=== PATIENT | female | born 1965 | race Hispanic/Latino ===

== ENCOUNTER → 2017-10-22 | Outpatient (CLI) | payer BC ==
[~2017-10-22] MED LIST: CELEBREX100 MG PO; CHLORZOXAZONE500 MG PO; CRESTOR20 MG PO; CYCLOBENZAPRINE10 MG PO; CYMBALTA30 MG PO; DIAZEPAM2 MG PO; FENOFIBRATE145 MG PO; HYDROCODON-ACE1 EA11 PO; LINZESS PO; LYRICA50 MG PO; MEDROL4 MG/DOSE- PO; NORTRIPTYLINE H10 MG PO; OMEPRAZOLE40 MG PO; PANTOPRAZOLE SO40 MG PO; VICOPROFEN 2001 EACH PO
--- NOTE | 2017-10-22 16:05 | Diagnostic Imaging Report ---
EXAM: DXA BONE DENSITY INDICATIONS: DISORDER OF BONE COMPARISON: 12/08/2015 and 11/11/2013 FINDINGS: Proximal left femur bone mineral density (BMD) (g/cm2):0.78 Femur T-score (standard deviation relative to young adult mean BMD): -0.8 Femur Z-score (standard deviation relative to age-matched control group):0 Lumbar bone mineral density (BMD) (g/cm2):1 Lumbar T-score (standard deviation relative to young adult mean BMD): -0.4 Lumbar Z-score (standard deviation relative to age-matched control group):0.4 Change since prior exam (%): Femur:-5.6% Spine:-7.7% Change since oldest prior exam (%): Femur:-5.5% Spine:-3.9% CONCLUSION: Bone mineral density in the left femur is classified as normal. Fracture risk is not increased. Decreased bone mineral density from 12/08/2015: -5.6% in the left hip and -7.7% in the lumbar spine. World Health Organization Classification: *The Z-score is provided for informational purposes. The T-score is preferable for clinical decisions. When comparing exams, a change of >4% is considered statistically significant. SUGGESTED RECOMMENDATIONS: Normal \T\ Osteopenia:Consideration should be given to use of calcium supplementation, daily multiple vitamins and adequate exercise, as preventive measures against osteoporosis, if clinically indicated. Osteoporosis \T\ Severe Osteoporosis:In addition to the above, consideration should be given to medical therapy against osteoporosis, if clinically indicated. Dictated by: Keagan Tomas M.D. on 10/22/2017 at 16:05 Electronically approved by: Keagan Tomas M.D. on 10/22/2017 at 16:05
== END ==
LOC: MAMMO 14:52
PROVIDERS: ATTEND Internal Medicine
DX: Z12.31 Encounter for screening mammogram for malignant neoplasm of breast (principal); M89.9 Disorder of bone, unspecified
CPT/HCPCS: 77080

== ENCOUNTER → 2017-11-21 | Outpatient (CLI) | payer BC ==
--- NOTE | 2017-11-21 18:11 | Diagnostic Imaging Report ---
#[id number] - USBRELIMRT ULTRASOUND OF THE RIGHT BREAST : 11/21/2017 Comparison is made to exams dated: 11/21/2017 mammogram and 10/22/2017 mammogram - [facility]. Color flow and real-time ultrasound were performed on the right breast with scanning in the outer aspect from 12-6 o'clock. -At 9 o'clock 7 cm from the nipple there is a hypoechoic/cystic lesion measuring 7 x 3 x 6 mm. This could represent a bilobe cyst or lymph node. -At 7-8 o'clock 4 cm from the nipple there is a hyoechoic lesion with slightly lobular contour measuring 1.1 x 0.5 x 0.7 cm. This may represent a fibroadenoma. IMPRESSION: PROBABLY BENIGN - FOLLOW-UP RECOMMENDED Two lesions as described above are likely benign. An interim follow up ultrasound to access stability is recommended in 6 months. The patient was notified of the need for short term followup. Matthew Martínez Jr., D.O. cw/:11/21/2017 13:10:37 Truck Hopper: TROY MITTAL, [facility] letter sent: Followup Recommended Ultrasound BI-RADS: 3 Probably benign
--- NOTE | 2017-11-21 18:11 | Diagnostic Imaging Report ---
#[id number] - [id number] #UNILATERAL RIGHT DIGITAL DIAGNOSTIC MAMMOGRAM WITH SPOT COMPRESSION: 11/21/2017 Comparison is made to exams dated: 10/22/2017 mammogram and 12/08/2015 mammogram - [facility]. Current study contains 3 films. The tissue of the right breast is heterogeneously dense. This may lower the sensitivity of mammography. There is a 1.1 cm oval mass in the right breast at 7 o'clock anterior depth. Another density more lateral appears to represent a lymph node. No other significant masses or calcifications are seen in the breast. IMPRESSION: INCOMPLETE: NEEDS ADDITIONAL IMAGING EVALUATION The 1.1 cm oval mass in the right breast is indeterminate. An ultrasound is recommended and will be performed today. Matthew Martínez Jr., D.O. cw/:11/21/2017 12:47:06 Mold Changer: Yanelis MITTAL(Alycia)(Ruben), [facility] letter sent: Additional Imaging Needed Mammogram BI-RADS: 0 Indeterminate
== END ==
LOC: MAMMO 10:27
PROVIDERS: ATTEND Internal Medicine
DX: N63.10 Unspecified lump in the right breast, unspecified quadrant (principal)

== ENCOUNTER → 2018-01-01 | Day surgery (SDC) | payer BC ==
[~2018-01-01] MED LIST changes: +ATORVASTATIN CA40 MG PO; +CEFAZOLIN SOD 1 GM VIAL ONE; +DEXAMETHASONE SOD PHOS INJ 4 MG/ML VIAL ONE; +FENTANYL CITRATE/PF 100MCG/2 ML INJ ONE; +LIDOCAINE HCL 2% LOCAL INJ 5 ML SDV VIAL INJ ONE; +MIDAZOLAM HCL 2 MG/2 ML VIAL ONE; +ONDANSETRON HCL INJ 2 MG/ML VIAL ONE; +PROPOFOL IV EMULSION 10 MG/ML 20 ML VIAL ONE; +SEVOFLURANE INHAL SOLN 250 ML PEN BTL ONE
--- OUTSIDE RECORDS SUMMARY | 2018-01-01 06:58 | XMS REPORT ---
[facility] Address Unknown Phone Unavailable Care Team Providers Care Director Of Collections And Archives Name Role Phone FEDERICO AMIN Unavailable Unavailable JUANIS KRUEGER Unavailable Unavailable Problems This patient has no known problems. Allergies, Adverse Reactions, Alerts This patient has no known allergies or adverse reactions. Medications This patient has no known medications. Results Test Description Test Time Test Comments Text Results Atomic Results Result Comments US BREAST LIMITED RIGHT [place] [address] Patient Name: ROSMERY ALSTON MR #: [id number] : 1965 Age/Sex: 52/F Req #: [id number] [facility] Physician: Ordered by: FEDERICO AMIN MD Report #: [id number] Location: MAMMO Room/Bed: Procedure: [id number] US/US BREAST LIMITED RIGHT Exam Date: Exam Time: REPORT STATUS: Signed #[id number] - USBRELIMRT ULTRASOUND OF THE RIGHT BREAST : 11/21/2017 Comparison is made to exams dated: 11/21/2017 mammogram and 10/22/2017 mammogram - [facility]. Color flow and real-time ultrasound were performed on the right breast with scanning in the outer aspect from 12-6 o' clock. -At 9 o'clock 7 cm from the nipple there is a hypoechoic/cystic lesion measuring 7 x 3 x 6 mm. This could represent a bilobe cyst or lymph node. -At 7-8 o'clock 4 cm from the nipple there is a hyoechoic lesion with slightly lobular contour measuring 1.1 x 0.5 x 0.7 cm. This may represent a fibroadenoma. IMPRESSION: PROBABLY BENIGN - FOLLOW-UP RECOMMENDED Two lesions as described above are likely benign. An interim follow up ultrasound to access stability is recommended in 6 months. The patient was notified of the need for short term followup. Patria Martínez Jr., D.O. cw/:11/21/2017 13:10:37 Java Security Engineer: TROY MITTAL, [facility] letter sent: Followup Recommended Ultrasound BI-RADS: 3 Probably benign Dictated By: PATRIA MARTÍNEZ DO 1310 Transcribed By: VANESA on 11/21/17 1310 COPY TO: FEDERICO AMIN MD MAMMOGRAPHY DIGITAL DX UNI RT [place] [address] Patient Name: ROSMERY ALSTON MR #: [id number] : 1965 Age/Sex: 52/F Req #: [id number] Adm Physician: Ordered by: FEDERICO AMIN MD Report #: [id number] Location: MAMMO Room/Bed: Procedure: [id number] MG/MAMMOGRAPHY DIGITAL DX UNI RT Exam Date: 11/21/17 Exam Time: 1046 REPORT STATUS: Signed #[id number] - MGDXRT #UNILATERAL RIGHT DIGITAL DIAGNOSTIC MAMMOGRAM WITH SPOT COMPRESSION: 11/21/2017 Comparison is made to exams dated: 2017 mammogram and 12/08/2015 mammogram - [facility]. Current study contains 3 films. The tissue of the right breast is heterogeneously dense. This may lower the sensitivity of mammography. There is a 1.1 cm oval mass in the right breast at 7 o'clock anterior depth. Another density more lateral appears to represent a lymph node. No other significant masses or calcifications are seen in the breast. IMPRESSION: INCOMPLETE: NEEDS ADDITIONAL IMAGING EVALUATION The 1.1 cm oval mass in the right breast is indeterminate. An ultrasound is recommended and will be performed today. Patria Martínez Jr., D.O. cw/:11/21/2017 12:47:06 Java Security Engineer: Yanelis SIMMONS)(Ruben), [facility] letter sent: Additional Imaging Needed Mammogram BI-RADS: 0 Indeterminate Dictated By: PATRIA MARTÍNEZ DO 1247 Transcribed By: VANESA on 1247 COPY TO: FEDERICO AMIN MD BONE DXA DUAL ENERGY [place] [address] Patient Name: ROSMERY ALSTON MR #: [id number] : 1965 Age/Sex: 52/F Req #: [id number] Adm Physician: Ordered by: FEDERICO AMIN MD Report #: [id number] Location: MAMMO Room/Bed: Procedure: [id number] DX/BONE DXA DUAL ENERGY Exam Date: Exam Time: REPORT STATUS: Signed EXAM: DXA BONE DENSITY INDICATIONS: DISORDER OF BONE COMPARISON: 12/08/2015 and 11/11/2013 FINDINGS: Proximal left femur bone mineral density (BMD) (g/cm2): 0.78 Femur T-score (standard deviation relative to young adult mean BMD): -0.8 Femur Z-score (standard deviation relative to age-matched control group): 0 Lumbar bone mineral density (BMD) (g/cm2): 1 Lumbar T- score (standard deviation relative to young adult mean BMD): -0.4 Lumbar Z-score (standard deviation relative to age-matched control group): 0.4 Change since prior exam (%): Femur: -5.6% Spine: -7.7% Change since oldest prior exam (%): Femur: -5.5% Spine: -3.9% CONCLUSION : Bone mineral density in the left femur is classified as normal. Fracture risk is not increased. Decreased bone mineral density from 12/08/2015: -5.6 % in the left hip and -7.7% in the lumbar spine. World Health Organization Classification: *The Z-score is provided for informational purposes. The T-score is preferable for clinical decisions. When comparing exams, a change of >4% is considered statistically significant. SUGGESTED RECOMMENDATIONS: Normal T Osteopenia: Consideration should be given to use of calcium supplementation, daily multiple vitamins and adequate exercise , as preventive measures against osteoporosis, if clinically indicated. Osteoporosis T Severe Osteoporosis: In addition to the above, consideration should be given to medical therapy against osteoporosis, if clinically indicated. Dictated by: Keagan Tamez M.D. on 10/22/2017 at 16:05 Electronically approved by: Keagan Tamez M.D. on 10/22/2017 at 16:05 Dictated By: KEAGAN TAMEZ MD 1605 Transcribed By: CARLTON on 10/22/17 1605 COPY TO: FEDERICO AMIN MD MAMMOGRAM DIGITAL SCR [place] [address] Patient Name: ROSMERY ALSTON MR #: [id number] : 1965 Age/Sex: 52/F Req #: [id number] [facility] Physician: Ordered by: FEDERICO AMIN MD Report #: [id number] Location: MAMMO Room/Bed: Procedure: [id number] MG/MAMMOGRAM DIGITAL SCR BI Exam Date: Exam Time: 1500 REPORT STATUS: Signed #[id number] - MGSCRNBI #BILATERAL DIGITAL SCREENING MAMMOGRAM WITH CAD: CLINICAL: Routine screening. Comparison is made to exam dated: 12/08/2015 mammogram - [facility]. Current study contains 8 films. The tissue of both breasts is heterogeneously dense. This may lower the sensitivity of mammography. Current study was also evaluated with a Computer Aided Detection (CAD) system. There is a 1 cm oval mass in the right breast at 9 o'clock middle depth that is new. Benign calcification in the right breast. There are bilateral implants that are intact and stable. No other significant masses, calcifications, or other findings are seen in either breast. IMPRESSION: INCOMPLETE: NEEDS ADDITIONAL IMAGING EVALUATION The 1 cm oval mass in the right breast resembles a cyst but is indeterminate and new. Additional views with possible ultrasound are recommended. The patient will be contacted by the Mammography Department to schedule this appointment. Patria Martínez Jr., D.O. cw/:11/05/2017 08:03:30 Java Security Engineer : Yanelis SIMMONS)(Ruben), [facility] letter sent: Additional Imaging Needed Mammogram BI-RADS: 0 Indeterminate Dictated By : PATRIA MARTÍNEZ DO 2 Transcribed By: VANESA on 11/05/17802 COPY TO: FEDERICO AMIN MD MRI SPINE CERVICAL WO [facility] [address] [place] [address] Patient Name: ROSMERY ALSTON MR #: [id number] : 1965 Age/Sex: 52/F [facility] #: [id number] Adm Physician: Ordered by: JUANIS KRUEGER MD Report #: [id number] Location: MRI Room/Bed: Procedure: [id number] MRI/MRI SPINE CERVICAL WO Exam Date: 05/20/17 Exam Time: 1750 REPORT STATUS: Signed EXAMINATION: MRI of the cervical spine without contrast HISTORY: Neck pain, cervical radiculopathy, right upper extremity numbness for the last 3-4 months COMPARISON: None available TECHNIQUE: Sagittal T1, T2, STIR; axial T2 , gradient echo. FINDINGS: Curvature: Normal lordosis. Vertebrae : No evidence of neoplasm, infection, or fracture. Chronic endplate degenerative changes from C5 through C7 Foramen magnum: No mass, Chiari malformation, or basilar invagination. Spinal Cord: Normal size and signal intensity. Soft Tissues: Unremarkable. Degenerative changes: C1-C2: Unremarkable. C2-C3: Unremarkable. C3-C4: Mild disc bulge and facet arthrosis without canal or foraminal stenoses C4-C5 : Small disc osteophyte, mild uncovertebral and facet arthrosis without significant stenoses C5-C6: Slightly asymmetric to the right disc osteophyte complex, mild bilateral uncovertebral facet arthrosis. Mild canal and right foraminal stenosis. Moderate left foraminal stenosis., C6- C7: Disc osteophyte complex, bilateral uncovertebral and facet arthrosis. Severe spinal canal, moderate right and severe left foraminal stenoses C7-T1: Mild facet arthrosis without canal or foraminal stenosis IMPRESSION: 1. Severe degenerative spinal canal stenosis at C6-7 and mild at C5-6. 2. Severe foraminal stenosis on the left at C6-7 and moderate at C5-6 Signed by: Dr. Dipesh Joe M.D. on 05/21/2017 7:08 AM Dictated By: DIPESH JOE MD 7 Transcribed By: DONTAE on 05/21/17707 COPY TO: JUANIS KRUEGER MD
--- NOTE | 2018-01-01 14:13 | Operative Report ---
DATE OF PROCEDURE: January 01, 2018 PREOPERATIVE DIAGNOSES 1. Stenosing tenosynovitis of right thumb and right long finger. 2. Right wrist volar ganglion cyst. POSTOPERATIVE DIAGNOSES 1. Stenosing tenosynovitis of right thumb and right long finger. 2. Right wrist volar ganglion cyst. OPERATION PERFORMED 1. Tenovaginotomy of right thumb and right long finger. 2. Excision of right wrist volar ganglion cyst. ANESTHESIA: General. HISTORY: The patient is a 52-year-old female who presents with stenosing tenosynovitis of the right thumb and right long finger that is recalcitrant to conservative treatment. The risks, benefits, and alternatives of treatment were discussed with the patient, and she is prepared to undergo the procedure as outlined. DESCRIPTION OF PROCEDURE: The patient was brought to the operating theater. After the induction of adequate general anesthesia, the patient was prepped and draped in a supine position. A time out was performed by the entire operating room team. An oblique incision was marked out over the A1 wil of the right thumb and right long finger. The upper extremity was exsanguinated, and a tourniquet was inflated to a pressure of 250 mmHg. The incision was made through the skin and subcutaneous tissues. All venous tributaries were controlled with bipolar cautery. The incision was deepened through the palmar tissues. The neurovascular bundles on the radial and ulnar sides of the flexor tendon sheath were identified and retracted away from the flexor tendon sheath and preserved. The A1 wil of the affected finger was identified and incised longitudinally, taking care to protect and preserve the flexor tendons within the sheath. After the complete length of the wil had been transected, the tendons were placed in a range of motion. There was noted to be good motion without any locking. The wound was then copiously irrigated with bacteriostatic saline and closed with 5-0 nylon in an interrupted horizontal mattress fashion. A Marcaine field block was performed at the operative site. An incision was marked out over the right wrist volar ganglion cyst. The incision was made through the skin and subcutaneous tissues. Venous tributaries were controlled with bipolar cautery. The dissection continued proximally where the FCR tendon and the radial artery were identified. The cyst was traced distally in the interval between the FCR and the radial artery. The cyst was noted to be densely adherent to the radial artery. Careful dissection of the cyst off the radial artery was performed without injury to the radial artery. At this point, the cyst was traced to the scaphotrapezial joint. When the cyst and its communicating stalk were removed in its entirety, the cyst was sent for permanent pathologic examination. The rent in the joint capsule was fulgurated using the bipolar cautery. The wound was irrigated with bacteriostatic saline and closed with 5-0 nylon in interrupted horizontal mattress fashion. The tourniquet was deflated. All the fingers pinked up nicely. A sterile bulky conforming bandage was applied to the hand, and the patient was returned to the recovery room in satisfactory condition and was discharged with a postoperative instruction sheet as well as a followup appointment. Job#: [id number] ALICIA
== END | disposition home or self-care (01) ==
LOC: OR 06:56
PROVIDERS: ATTEND Plastic Surgery
PROC: 0LB50ZZ Excision of Right Lower Arm and Wrist Tendon, Open Approach (ICD-10-PCS; 2018-01-01)
PROC: 0LN70ZZ Release Right Hand Tendon, Open Approach (ICD-10-PCS; principal; 2018-01-01 07:00)
PROC: 0LN70ZZ Release Right Hand Tendon, Open Approach (ICD-10-PCS; 2018-01-01 07:00)
DX: M65.311 Trigger thumb, right thumb (principal); M65.331 Trigger finger, right middle finger; M67.431 Ganglion, right wrist; E78.5 Hyperlipidemia, unspecified; K21.9 Gastro-esophageal reflux disease without esophagitis; F17.210 Nicotine dependence, cigarettes, uncomplicated; Z01.810 Encounter for preprocedural cardiovascular examination
CPT/HCPCS: 25111; 26055 ×2; 88304; 93005; J0690; J1100; J2001; J2250; J2405

== ENCOUNTER → 2018-01-21 | Outpatient (CLI) | payer BC ==
[~2018-01-21] MED LIST changes: -CEFAZOLIN SOD 1 GM VIAL ONE; -DEXAMETHASONE SOD PHOS INJ 4 MG/ML VIAL ONE; -FENTANYL CITRATE/PF 100MCG/2 ML INJ ONE; -LIDOCAINE HCL 2% LOCAL INJ 5 ML SDV VIAL INJ ONE; -MIDAZOLAM HCL 2 MG/2 ML VIAL ONE; -ONDANSETRON HCL INJ 2 MG/ML VIAL ONE; -PROPOFOL IV EMULSION 10 MG/ML 20 ML VIAL ONE; -SEVOFLURANE INHAL SOLN 250 ML PEN BTL ONE
--- NOTE | 2018-01-22 08:49 | Diagnostic Imaging Report ---
TECHNIQUE: Magnetic resonance imaging of the LEFT KNEE was performed WITHOUT injected contrast. HISTORY: Left knee pain COMPARISON: None available. FINDINGS: LIGAMENTS AND TENDONS: ACL: Intact PCL: Intact Collateral ligaments: Intact Iliotibial band: Unremarkable Popliteal tendon: Intact Extensor mechanism: Intact JOINT: Menisci: Medial: Degenerative signal with complex tearing of the posterior horn and degeneration of the root attachment posteriorly. Mild meniscal extrusion. Lateral: Horizontal tearing with para meniscal cyst anterior horn Articular Cartilage: Medial Compartment: Partial thickness cartilage loss Lateral Compartment: Partial thickness cartilage loss Patellofemoral Compartment: Partial thickness cartilage loss Joint Fluid: The amount of fluid within the joint is within physiologic limits. BONE: No focal or infiltrative bone marrow replacing abnormality. No acute fracture. SOFT TISSUES: Otherwise, unremarkable. IMPRESSION: Medial meniscus complex tearing posterior horn with extrusion. Lateral meniscus horizontal tearing with anterior horn parameniscal cyst. Tricompartmental partial-thickness cartilage loss. Signed by: Dr. Lamont Tovar M.D. on 01/22/2018 8:45 AM
== END ==
LOC: MRI 16:18
PROVIDERS: ATTEND Specialist
DX: M23.92 Unspecified internal derangement of left knee (principal)

== ENCOUNTER → 2018-06-17 | Outpatient (CLI) | payer BC ==
--- NOTE | 2018-06-18 08:48 | Diagnostic Imaging Report ---
#[id number] - USBRELIMRT ULTRASOUND OF THE RIGHT BREAST - SHORT-TERM FOLLOW-UP: 06/17/2018 Comparison is made to exams dated: 11/21/2017 ultrasound, 11/21/2017 mammogram and 10/22/2017 mammogram - [facility]. Color flow and real-time focused ultrasound were performed on the right breast with scanning from 6 to 12 o'clock. -At 7 o'clock 4 cm from the nipple the hypoechoic lesion appears similar measuring 9.6 x 5.4 x 6.4 mm (previously measured 11 x 5.2 x 7.3 mm) -At 9 o'clock adjacent to the nipple the hypoechoic lesion appears similar but slightly larger measuring 8.2 x 6.4 x 4.9 mm (6.5 x 6.3 x 3.1 mm) -At 9 o'clock 3 cm from the nipple is a 5 mm lymph node. IMPRESSION: BENIGN There is no sonographic evidence of malignancy. A 1 year screening mammogram is recommended. Matthew Martínez Jr., D.O. cw/:06/17/2018 16:12:32 Ammonia Refrigeration Worker: Basia Duenas [facility], [facility] letter sent: Normal Exam Ultrasound BI-RADS: 2 Benign
== END ==
LOC: US 07:33
PROVIDERS: ATTEND Internal Medicine
DX: N63.10 Unspecified lump in the right breast, unspecified quadrant (principal)

== ENCOUNTER → 2018-08-13 | Day surgery (SDC) | payer BC ==
[~2018-08-13] MED LIST changes: +DEXAMETHASONE SOD PHOS 10 MG/1 ML VIAL ONE; +FENTANYL CITRATE/PF 100MCG/2 ML INJ ONE; +IOPAMIDOL 200 MG/ML 20 ML VIAL IT ONE; +LIDOCAINE HCL 1% 30ML-PF VIAL ONE; +MIDAZOLAM HCL 2 MG/2 ML VIAL ONE; +MULTI-VITAMIN1 EACH; +ONDANSETRON HCL INJ 2 MG/ML VIAL ONE; +PROPOFOL IV EMULSION 10 MG/ML 20 ML VIAL ONE
[2018-08-13 07:25] VITALS: BP 107/57
== END | disposition home or self-care (01) ==
LOC: OR 05:10
PROVIDERS: ATTEND Physical Medicine & Rehabilitation Pain Medicine
DX: M54.12 Radiculopathy, cervical region (principal); K21.9 Gastro-esophageal reflux disease without esophagitis; Z01.810 Encounter for preprocedural cardiovascular examination
CPT/HCPCS: 64479; 64480; 93005; J1100; J2001; J2250; J2405; J2704; Q9967; 77003

== ENCOUNTER → 2019-01-26 | Outpatient (CLI) | payer BC ==
[~2019-01-26] MED LIST changes: -DEXAMETHASONE SOD PHOS 10 MG/1 ML VIAL ONE; -FENTANYL CITRATE/PF 100MCG/2 ML INJ ONE; -IOPAMIDOL 200 MG/ML 20 ML VIAL IT ONE; -LIDOCAINE HCL 1% 30ML-PF VIAL ONE; -MIDAZOLAM HCL 2 MG/2 ML VIAL ONE; -ONDANSETRON HCL INJ 2 MG/ML VIAL ONE; -PROPOFOL IV EMULSION 10 MG/ML 20 ML VIAL ONE
[2019-01-26 07:53] LABS: ALANINE AMINOTRANSFERASE 23 IU/L (0-55); ALBUMIN 3.9 g/dL (3.5-5.0); ALBUMIN/GLOBULIN RATIO 1.1 (0.8-2.0); ALKALINE PHOSPHATASE 116 IU/L (40-150); ANION GAP 11.1 mmol/L (8-16); BLOOD UREA NITROGEN 11 mg/dL (7-26); BUN/CREATININE RATIO 14 (6-25); CALCIUM 9.7 mg/dL (8.4-10.2); CARBON DIOXIDE 24 mmol/L (22-29); CHLORIDE 105 mmol/L (98-107); CHOLESTEROL 228 MD/DL (0-199); EST GLOMERULAR FILTRATION RATE > 60 ML/MIN (60-); GLUCOSE 95 mg/dL (74-118); HDL CHOLESTEROL 46 MG/DL (40-60); LDL CHOLESTEROL 148 MG/DL (60-130); POTASSIUM 4.1 mmol/L (3.5-5.1); SODIUM 136 mmol/L (136-145); TRIGLYCERIDES 169 MG/DL (0-149)
--- NOTE | 2019-01-26 08:01 | Diagnostic Imaging Report ---
EXAMINATION: CHEST 2 VIEWS INDICATION: ^Acute bronchitis COMPARISON: None FINDINGS: PA and lateral views TUBES and LINES: None. LUNGS: Lungs are well inflated. Mild scarring in the bilateral lung bases, suggesting mild interstitial lung disease. There is no evidence of pneumonia or pulmonary edema. PLEURA: No pleural effusion or pneumothorax. HEART AND MEDIASTINUM: The cardiomediastinal silhouette is unremarkable. BONES AND SOFT TISSUES: No acute osseous lesion. Soft tissues are unremarkable. UPPER ABDOMEN: No free air under the diaphragm. IMPRESSION: Mild scarring in the bilateral lung bases, suggesting mild interstitial lung disease. There is no evidence of pneumonia or pulmonary edema. Signed by: Dr. Ronald Philip M.D. on 01/26/2019 7:58 AM
== END ==
LOC: LAB 06:37
PROVIDERS: ATTEND Internal Medicine
DX: E78.5 Hyperlipidemia, unspecified (principal); B35.1 Tinea unguium
CPT/HCPCS: 36415; 71046; 80053; 80061

== ENCOUNTER → 2019-03-01 | Outpatient (CLI) | payer BC ==
[2019-03-01 15:00] LABS: ALBUMIN 4.1 g/dL (3.5-5.0); BILIRUBIN,DIRECT 0.1 mg/dL (0.0-0.5)
== END ==
LOC: LAB 14:06
PROVIDERS: ATTEND Internal Medicine
DX: R94.5 Abnormal results of liver function studies (principal); B35.1 Tinea unguium
CPT/HCPCS: 36415; 80076

== ENCOUNTER → 2019-06-17 | Outpatient (CLI) | payer BC ==
--- NOTE | 2019-06-18 09:29 | Diagnostic Imaging Report ---
#[id number] - [id number] #BILATERAL DIGITAL SCREENING MAMMOGRAM WITH CAD: 06/17/2019 CLINICAL: Routine screening. Comparison is made to exams dated: 11/21/2017 mammogram, 10/22/2017 mammogram and 12/08/2015 mammogram - [facility]. Current study contains 8 films. The tissue of both breasts is heterogeneously dense. This may lower the sensitivity of mammography. Current study was also evaluated with a Computer Aided Detection (CAD) system. Bilateral retropectoral breast implants are intact. Benign appearing calcifications are noted bilaterally. The nodule in the right breast remains stable. No significant masses, calcifications, or other findings are seen in either breast. IMPRESSION: BENIGN There is no mammographic evidence of malignancy. A 1 year screening mammogram is recommended. The patient will be notified by letter of the results. SHERRIE LOJA M.D. ct/penrad:06/17/2019 16:38:49 Fish Bailer: Yanelis MITTAL(R)(Ruben), [facility] letter sent: Normal Exam Mammogram BI-RADS: 2 Benign
== END ==
LOC: MAMMO 08:14
PROVIDERS: ATTEND Internal Medicine
DX: Z12.31 Encounter for screening mammogram for malignant neoplasm of breast (principal)
CPT/HCPCS: 77067

== ENCOUNTER → 2019-07-22 | Day surgery (SDC) | payer BC ==
[~2019-07-22] MED LIST changes: +DEXAMETHASONE SOD PHOS 10 MG/1 ML VIAL ONE; +FENTANYL CITRATE/PF 100MCG/2 ML INJ ONE; +IOPAMIDOL 300 MG/ML 15ML VIAL IT ONE; +LIDOCAINE HCL 1% 30ML-PF VIAL ONE; +MIDAZOLAM HCL 2 MG/2 ML VIAL ONE; +PROPOFOL IV EMULSION 10 MG/ML 20 ML VIAL ONE; +VIT C PO
[2019-07-22 08:35] VITALS: BP 112/63
== END | disposition home or self-care (01) ==
LOC: OR 05:51
PROVIDERS: ATTEND Physical Medicine & Rehabilitation Pain Medicine
DX: M54.12 Radiculopathy, cervical region (principal); M54.81 Occipital neuralgia; M54.16 Radiculopathy, lumbar region; M46.96 Unspecified inflammatory spondylopathy, lumbar region; K21.9 Gastro-esophageal reflux disease without esophagitis; Z01.810 Encounter for preprocedural cardiovascular examination
CPT/HCPCS: 64479; 64480; 93005; J1100; J2001; J2250; J2704; J3010; Q9967; 77003

== ENCOUNTER → 2019-08-19 | Day surgery (SDC) | payer BC ==
[~2019-08-19] MED LIST changes: +DEXAMETHASONE SOD PHOS INJ 4 MG/ML VIAL ONE; -LIDOCAINE HCL 1% 30ML-PF VIAL ONE; +LIDOCAINE HCL 2% LOCAL INJ 5 ML SDV VIAL INJ ONE; +ONDANSETRON HCL INJ 2MG/ML 2ML 2 MG/ML VIAL ONE
[2019-08-19 07:45] VITALS: BP 100/56
== END | disposition home or self-care (01) ==
LOC: OR 05:38
PROVIDERS: ATTEND Physical Medicine & Rehabilitation Pain Medicine
DX: M54.12 Radiculopathy, cervical region (principal); M54.81 Occipital neuralgia; M54.16 Radiculopathy, lumbar region; K29.70 Gastritis, unspecified, without bleeding
CPT/HCPCS: 64479; 64480; J1100 ×2; J2001; J2250; J2405; J2704; J3010; Q9967; 77003

== ENCOUNTER → 2019-10-14 | Outpatient (CLI) | payer BC ==
[~2019-10-14] MED LIST changes: -DEXAMETHASONE SOD PHOS 10 MG/1 ML VIAL ONE; -DEXAMETHASONE SOD PHOS INJ 4 MG/ML VIAL ONE; -FENTANYL CITRATE/PF 100MCG/2 ML INJ ONE; -IOPAMIDOL 300 MG/ML 15ML VIAL IT ONE; -LIDOCAINE HCL 2% LOCAL INJ 5 ML SDV VIAL INJ ONE; -MIDAZOLAM HCL 2 MG/2 ML VIAL ONE; -ONDANSETRON HCL INJ 2MG/ML 2ML 2 MG/ML VIAL ONE; -PROPOFOL IV EMULSION 10 MG/ML 20 ML VIAL ONE
[2019-10-14 06:44] LABS: ALANINE AMINOTRANSFERASE 13 IU/L (0-55); ALBUMIN/GLOBULIN RATIO 1.1 (0.8-2.0); ALKALINE PHOSPHATASE 110 IU/L (40-150); ANION GAP 14.9 mmol/L (8-16); BLOOD UREA NITROGEN 12 mg/dL (7-26); BUN/CREATININE RATIO 14 (6-25); CALCIUM 9.3 mg/dL (8.4-10.2); CARBON DIOXIDE 23 mmol/L (22-29); CHLORIDE 104 mmol/L (98-107); CHOL/HDL RATIO 5.2 (3.0-3.6); CHOLESTEROL 218 MD/DL (0-199); CREATININE, SERUM 0.83 mg/dL (0.57-1.11); EST GLOMERULAR FILTRATION RATE > 60 ML/MIN (60-); GLUCOSE 101 mg/dL (74-118); HDL CHOLESTEROL 42 MG/DL (40-60); POTASSIUM 3.9 mmol/L (3.5-5.1); SODIUM 138 mmol/L (136-145)
[2019-10-14 07:01] LABS: LDL CHOLESTEROL 138 MG/DL (60-130); TRIGLYCERIDES 192 MG/DL (0-149)
== END ==
LOC: LAB 06:07
PROVIDERS: ATTEND Internal Medicine
DX: R73.01 Impaired fasting glucose (principal); E78.5 Hyperlipidemia, unspecified
CPT/HCPCS: 36415; 80053; 80061; 83036

== ENCOUNTER 2019-12-16 00:21 | Emergency (ER) | payer BC, OTHER ==
[~2019-12-16] VITALS: Ht 160 cm; Wt 73.9 kg
[2019-12-16] MEDS ORDERED: ASPIRIN 81 MG CHEW TAB PO ONE (00:30)
[2019-12-16 01:00] LABS: BASOPHILS % 0.4 % (0.0-1.0); EOSINOPHILS # (AUTO) 0.1 (0.0-0.4); EOSINOPHILS % 0.7 % (0.0-6.0); HEMATOCRIT 41.8 % (34.2-44.1); HEMOGLOBIN 14.2 g/dL (12.0-16.0); LYMPHOCYTES # (AUTO) 4.8 (1.0-3.2); LYMPHOCYTES % 43.1 % (18.0-39.1); MEAN CORPUSCULAR HEMOGLOBIN 31.8 pg (28-32); MEAN CORPUSCULAR VOLUME 93.5 fL (81-99); MONOCYTES # (AUTO) 0.5 (0.2-0.8); MONOCYTES % 4.9 % (4.4-11.3); NEUTROPHILS # (AUTO) 5.6 (2.1-6.9); NEUTROPHILS % 50.5 % (38.7-80.0); PLATELET COUNT 328 x10e3/uL (140-360); RED BLOOD COUNT 4.47 x10e6/uL (3.6-5.1); RED CELL DISTRIBUTION WIDTH 14.3 % (11.7-14.4)
[2019-12-16 01:14] LABS: CLARITY,URINE CLEAR (CLEAR); COLOR,URINE YELLOW (YELLOW); LEUKOCYTE ESTERASE ,URINE NEGATIVE (NEGATIVE); NITRITE,URINE NEGATIVE (NEGATIVE)
[2019-12-16 01:15] LABS: BILIRUBIN,URINE NEGATIVE (NEGATIVE); KETONES,URINE NEGATIVE (NEGATIVE); PROTEIN,URINE DIPSTICK NEGATIVE (NEGATIVE); URINE UROBILINOGEN 0.2 mg/dL (0.2 - 1)
[2019-12-16 01:16] LABS: ALANINE AMINOTRANSFERASE 20 IU/L (0-55); ALBUMIN 4.4 g/dL (3.5-5.0); ALBUMIN/GLOBULIN RATIO 1.4 (0.8-2.0); ALKALINE PHOSPHATASE 111 IU/L (40-150); ANION GAP 14.6 mmol/L (8-16); BLOOD UREA NITROGEN 11 mg/dL (7-26); BUN/CREATININE RATIO 14 (6-25); CALCIUM 9.8 mg/dL (8.4-10.2); CARBON DIOXIDE 23 mmol/L (22-29); CHLORIDE 107 mmol/L (98-107); CREATINE KINASE 174 IU/L (29-168); CREATININE, SERUM 0.81 mg/dL (0.57-1.11); EST GLOMERULAR FILTRATION RATE > 60 ML/MIN (60-); GLUCOSE 120 mg/dL (74-118); POTASSIUM 3.6 mmol/L (3.5-5.1); SODIUM 141 mmol/L (136-145)
[2019-12-16 01:31] LABS: BACTERIA,URINE RARE /HPF; EPITHELIAL CELLS,URINE FEW /LPF; RBC,URINE 0-5 /HPF (0-5); WBC,URINE (MAN) 0-5 /HPF (0-5)
--- NOTE | 2019-12-16 03:12 | Diagnostic Imaging Report ---
EXAM: CT Chest WITH contrast- Pulmonary Embolism Protocol INDICATION: Shortness of breath, tachycardia. COMPARISON: Chest radiograph 01/26/2019. TECHNIQUE: Chest was scanned utilizing a multidetector helical scanner from the lung apex through the level of the diaphragm after administration of IV contrast. Thin section reconstructions were obtained with special concentration on the pulmonary arteries. Coronal and sagittal reformations were obtained. Pulmonary embolism protocol was performed. IV CONTRAST: 100 cc of Isovue 370 RADIATION DOSE: Total DLP: 532.8 mGy*cm Dose modulation, iterative reconstruction, and/or weight based adjustment of the mA/kV was utilized to reduce the radiation dose to as low as reasonably achievable. COMPLICATIONS: None FINDINGS: LINES/ TUBES: None. PULMONARY ARTERIES: No filling defect is identified within the pulmonary arteries to the segmental level. Main pulmonary artery measures 2.2 cm in diameter. LUNGS AND AIRWAYS: The central airways are patent. Moderate upper lung predominant paraseptal emphysematous changes. PLEURA: The pleural spaces are clear. HEART AND MEDIASTINUM: Visualized portions of the thyroid gland are unremarkable. No mediastinal, hilar or axillary lymphadenopathy. Subcentimeter mediastinal lymph nodes, likely reactive. The heart is normal in size.. There is no pericardial effusion. Fatty infiltration of the interatrial septum. Mild atherosclerotic calcifications of the thoracic aorta and branch vessels. Scattered coronary atherosclerosis. UPPER ABDOMEN: Limited contrast-enhanced views of the upper abdomen. BONES: The visualized bony thorax is within normal limits. SOFT TISSUES: Bilateral breast implants. IMPRESSION: No evidence of pulmonary embolism to the level of the segmental pulmonary arteries. Moderate paraseptal emphysematous changes of the lungs. Scattered coronary atherosclerosis. Signed by: Dr. Wen Kelley MD on 12/16/2019 3:07 AM
[2019-12-16 03:16] VITALS: BP 126/80
[2019-12-16] MEDS ORDERED: SODIUM CHLORIDE 0.9% 50ML 50 ML ONE (04:09)
[2019-12-16] MEDS ORDERED: IOPAMIDOL 370 MG/ML 200 ML INFUS..BTL INJ ONE (04:10)
== END 2019-12-16 03:35 | disposition home or self-care (01) ==
LOC: ER 00:37
DX: R06.09 Other forms of dyspnea (principal); F17.210 Nicotine dependence, cigarettes, uncomplicated
CPT/HCPCS: 36415; 71260; 80053; 81001; 82550; 82553; 83735; 83880; 84484; 85025; 85730; 99284; Q9967

== ENCOUNTER → 2020-03-10 | Outpatient (CLI) | payer BC, OTHER ==
--- NOTE | 2020-03-10 15:13 | Diagnostic Imaging Report ---
EXAMINATION: CHEST 2 VIEWS INDICATION: ^[id number] ^1400 ^COUGH COMPARISON: CT chest fluoroscopy 05/28/2020 FINDINGS: PA and lateral views TUBES and LINES: None. LUNGS: Lungs are well inflated. Bilateral emphysema, unchanged. There is no evidence of pneumonia or pulmonary edema. PLEURA: No pleural effusion or pneumothorax. HEART AND MEDIASTINUM: The cardiomediastinal silhouette is unremarkable. BONES AND SOFT TISSUES: No acute osseous lesion. Bilateral breast implants. UPPER ABDOMEN: No free air under the diaphragm. IMPRESSION: No acute thoracic abnormality. Signed by: Dr. Lyndsey Naylor M.D. on 03/10/2020 3:10 PM
== END ==
LOC: RAD 13:42
PROVIDERS: ATTEND Internal Medicine Critical Care Medicine
DX: R05 Cough (principal)
CPT/HCPCS: 71046

== ENCOUNTER → 2020-04-12 | Outpatient (CLI) | payer BC, OTHER ==
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
== END ==
LOC: MRI 13:50
PROVIDERS: ATTEND Physical Medicine & Rehabilitation Pain Medicine
DX: M54.2 Cervicalgia (principal); M54.12 Radiculopathy, cervical region; M25.511 Pain in right shoulder
CPT/HCPCS: 72141

== ENCOUNTER 2020-05-11 05:20 | Observation (INO) | payer BC, OTHER ==
[2020-05-08 09:46] LABS: BASOPHILS % 0.3 % (0.0-1.0); EOSINOPHILS # (AUTO) 0.1 (0.0-0.4); EOSINOPHILS % 1.3 % (0.0-6.0); HEMATOCRIT 40.5 % (34.2-44.1); HEMOGLOBIN 13.2 g/dL (12.0-16.0); LYMPHOCYTES # (AUTO) 3.7 (1.0-3.2); LYMPHOCYTES % 36.7 % (18.0-39.1); MEAN CORPUSCULAR HEMOGLOBIN 31.1 pg (28-32); MEAN CORPUSCULAR HGB CONC 32.6 g/dL (31-35); MEAN CORPUSCULAR VOLUME 95.5 fL (81-99); MONOCYTES # (AUTO) 0.4 (0.2-0.8); MONOCYTES % 3.6 % (4.4-11.3); NEUTROPHILS # (AUTO) 5.8 (2.1-6.9); NEUTROPHILS % 57.6 % (38.7-80.0); PLATELET COUNT 294 x10e3/uL (140-360); RED BLOOD COUNT 4.24 x10e6/uL (3.6-5.1); RED CELL DISTRIBUTION WIDTH 14.3 % (11.7-14.4)
[2020-05-08 10:02] LABS: INR 0.86; PROTHROMBIN TIME 12.1 seconds (11.9-14.5)
[2020-05-08 10:03] LABS: PARTIAL THROMBOPLASTIN TIME 28.6 seconds (23.8-35.5)
[2020-05-08 10:09] LABS: ANION GAP 13.8 mmol/L (8-16); BLOOD UREA NITROGEN 11 mg/dL (7-26); BUN/CREATININE RATIO 14 (6-25); CARBON DIOXIDE 22 mmol/L (22-29); CHLORIDE 109 mmol/L (98-107); CREATININE, SERUM 0.76 mg/dL (0.57-1.11); EST GLOMERULAR FILTRATION RATE > 60 ML/MIN (60-); GLUCOSE 86 mg/dL (74-118); POTASSIUM 3.8 mmol/L (3.5-5.1); SODIUM 141 mmol/L (136-145)
[~2020-05-11] VITALS: Ht 160 cm; Wt 74.8 kg
[2020-05-11] MEDS ORDERED: CEFAZOLIN SOD 1 GM/NS 50ML 100 ML IV ONE (05:46)
[2020-05-11] MEDS ORDERED: VANCOMYCIN HCL 1 GM VIAL ONE (06:44)
[2020-05-11] MEDS ORDERED: THROMBIN FOR SOLN 5,000 UNIT VIAL ONE (06:44)
[2020-05-11] MEDS ORDERED: BUPIVACAINE 0.5%/EPI 30 ML SDV INJ ONE (06:44)
[2020-05-11] MEDS ORDERED: IBUPROFEN 800MG/ 200ML 200 ML IV ONE (06:48)
[2020-05-11] MEDS ORDERED: LIDOCAINE HCL (LTA) 4 ML SOLN ONE (06:48)
[2020-05-11] MEDS ORDERED: ONDANSETRON HCL INJ 2MG/ML 2ML 2 MG/ML VIAL IV PRN (09:30)
[2020-05-11] MEDS ORDERED: OXYCODONE/ACETAMINOPHEN 5-325 1 EACH TABLET PO PRN (09:30)
[2020-05-11] MEDS ORDERED: CARISOPRODOL 350 MG TAB PO PRN (09:30)
[2020-05-11] MEDS ORDERED: HYDROMORPHONE 2MG/ML 2 MG/ML ML IV PRN (09:30)
[2020-05-11] MEDS ORDERED: ACETAMINOPHEN 325 MG TAB PO PRN (09:30)
[2020-05-11] MEDS ORDERED: LACTATED RINGER'S 1,000 ML IV SCH (09:30)
[2020-05-11] MEDS ORDERED: CYCLOBENZAPRINE HCL 10 MG TAB PO PRN (09:30)
[2020-05-11] MEDS ORDERED: MORPHINE SULFATE 5 MG/ML VIAL IM PRN (09:30)
[2020-05-11] MEDS ORDERED: MAGNESIUM/ALUMINUM/SIMETHICONE 30 ML UDC PO PRN (09:30)
[2020-05-11] MEDS ORDERED: PROMETHAZINE HCL (IM) 25 MG/ML VIAL IM PRN (09:30)
--- OUTSIDE RECORDS SUMMARY | 2020-05-11 10:31 | XMS REPORT | Continuity of Care Document ---
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 cardiomediastinal silhouette is unremarkable. BONES AND SOFT TISSUES: No acute osseous lesion. Soft tissues are un remarkable. UPPER ABDOMEN: No free air under the diaphragm. IMPRES TYLER: Mild scarring in the bilateral lung bases, suggesting mild interstitial lung disease. There is no evidence of pneumonia or pulmonary edema. Signed by: Dr. Ronald Coombs M.D. on 01/26/2019 7:58 AM Dictated By: RONALD COOMBS MD 7 Transcribed By: DONTAE on 01/26/19757 COPY TO: FEDERICO AMIN MD US BREAST LIMITED [id number] 08:58:[address] [address] Patient Name: ROSMERY ALSTON MR #: [id number] : 1965 Age/Sex: 53/F Req #: [id number] Adm Physician: Ordered by: FEDERICO AMIN MD Report #: [id number] Location: Room/Bed: Procedure: [id number] US/US BREAST LIMIT ED RIGHT Exam Date: Exam Time: REPORT STATUS : Signed #[id number] - USBRELIMRT ULTRASOUND OF THE RIGHT BREAST - ORT-TERM FOLLOW-UP: 06/17/2018 Comparison is made to exams dated: 11/21/2017 u ltrasound, 11/21/2017 mammogram and 10/22/2017 mammogram - [facility]. Color flow and real-time focused ultrasound were performed o n the right breast with scanning from 6 to 12 o'clock. -At 7 o'clock 4 cm from the nipple the hypoechoic lesion appears similar measuring 9.6 x 5.4 x 6 .4 mm (previously measured 11 x 5.2 x 7.3 mm) -At 9 o'clock adjacent to the nipple the hypoechoic lesion appears similar but slightly larger measurin g 8.2 x 6.4 x 4.9 mm (6.5 x 6.3 x 3.1 mm) -At 9 o'clock 3 cm from the nippl e is a 5 mm lymph node. IMPRESSION: BENIGN There is no sonographic evidence of malignancy. A 1 year screening mammogram is recommended. Cl iff Tanya Quick D.O. cw/:06/17/2018 16:12:32 Director Of Reimbursement: Héctor Duenas [facility], [facility] letter sent: Normal Exa m Ultrasound BI-RADS: 2 Benign Dictated By: MATTHEW URIAS DO Electronic ally Signed By: MATTHEW URIAS DO on 06/17/181611 Transcribed By: NATA on 06/25 COPY TO: FEDERICO AMIN MD MRI KNEE LEFT WO [address] [address] Patient Name: ROSMERY ALSTON MR #: [id number] : 1965 Age/Sex: 52/F Req #: [id number] Adm Physicia n: Ordered by: VERN PRUITT MD Report #: [id number] Location: MRI Room/ Bed: Procedure: [id number] MRI/MRI KNEE LEFT WO Exam Date: Exam Time: REPORT STATUS: Signed EMERY HNIQUE: Magnetic resonance imaging of the LEFT KNEE was performed WITHOUT inje cted contrast. HISTORY: Left knee pain COMPARISON: None available. FINDINGS: LIGAMENTS AND TENDONS: ACL: Intact PCL: Inta ct Collateral ligaments: Intact Iliotibial band: Unremarkable Popliteal tendon: Intact Extensor mechanism: Intact JOINT: Menisci: Medial: Degenerative signal with complex tearing of the posterior horn and degeneration of the root attachment posteriorly. Mild m eniscal extrusion. Lateral: Horizontal tearing with para meniscal cyst anterior horn Articular Cartilage: Medial Compartmen t: Partial thickness cartilage loss Lateral Compartment: Partial t hickness cartilage loss Patellofemoral Compartment: Partial thickne ss cartilage loss Joint Fluid: The amount of fluid within the joint is within physiologic limits. BONE: No focal or infiltrative bone marrow replacing abnormality. No acute fracture. SOFT TISSUES: Otherwise, unremarkable. IMPRESSION: Medial meniscus complex tearing posterio r horn with extrusion. Lateral meniscus horizontal tearing with anterior ho rn parameniscal cyst. Tricompartmental partial-thickness cartilage loss. Signed by: Dr. Serene Ashton M.D. on 01/22/2018 8:45 AM Dictated By: SERENE ASHTON MD 0 845 Transcribed By: DONTAE on 01/22/18 0845 COPY TO: VERN PRUITT MD US BREAST LIMITED RIGHT [address] [place] [address] Patient Name: ROSMERY ALSTON MR #: [id number] : 1965 Age/Sex: 52/F Req #: [id number] Adm Physician: Ordered by: FEDERICO AMIN MD Report #: [id number] Location: MAMMO Room/Bed: Procedure: [id number] US/US BREAST LI MITED RIGHT Exam Date: Exam Time: REPORT STA TUS: Signed #[id number] - USBRELIMRT ULTRASOUND OF THE RIGHT BREAST : 11/21/2017 Comparison is made to exams dated: 11/21/2017 mammogram and 10/22/19 18 mammogram - [facility]. Color flow and real-ti me ultrasound were performed on the right breast with scanning in the outer a spect from 12-6 o'clock. -At 9 o'clock 7 cm from the nipple there is a hypo echoic/cystic lesion measuring 7 x 3 x 6 mm. This could represent a bilobe c yst or lymph node. -At 7-8 o'clock 4 cm from the nipple there is a hyoechoi c lesion with slightly lobular contour measuring 1.1 x 0.5 x 0.7 cm. This m ay represent a fibroadenoma. IMPRESSION: PROBABLY BENIGN - FOLLOW-UP R ECOMMENDED Two lesions as described above are likely benign. An interim follo w up ultrasound to access stability is recommended in 6 months. The [facility] ient was notified of the need for short term followup. Matthew Urias Jr., D.O. cw/:11/21/2017 13:10:37 [facility] Of Reimbursement[facility]: Followup Recommended Ultras ound BI-RADS: 3 Probably benign Dictated By: MATTHEW URIAS DO Electronicall y Signed By: MATTHEW URIAS DO on 11/21/17 1310 Transcribed By: NATA on 1310 COPY TO: FEDERICO AMIN MD MAMMOGRAPHY DIGITAL DX UNI RT [place] [address] Patient Name: ROSMERY ALSTON MR #: [id number] : 1965 Age/Sex: 52/F Req #: [id number] Adm Physician: Ordered by: FEDERICO AMIN MD Report #: [id number] Location: MAMMO Room/Bed: Procedure: [id number] MG/MAMMOGRAPHY DIGITAL DX UNI RT Exam Date: 11/21/17 Exam Time: 104 6 REPORT STATUS: Signed #[id number] - MGDXRT #UNILATERAL RIGHT DIGITAL DIAGNOSTIC MAMMOGRAM WITH SPOT COMPRESSION: 11/21/2017 Comparison is ma de to exams dated: 10/22/2017 mammogram and 12/08/2015 mammogram - [facility]. Current study contains 3 films. The tissue of the r ight breast is heterogeneously dense. This may lower the sensitivity of mammo graphy. There is a 1.1 cm oval mass in the right breast at 7 o'clock anterio r depth. Another density more lateral appears to represent a lymph node. No other significant masses or calcifications are seen in the breast. IM PRESSION: INCOMPLETE: NEEDS ADDITIONAL IMAGING EVALUATION The 1.1 cm oval mass in the right breast is indeterminate. An ultrasound is recommended and will be performed today. Matthew Urias Jr., D.O. cw/:11/21/2017 12:47:06 Director Of Reimbursement: Yanelis MITTAL(Alycia)(Ruben), [facility] letter sent: Additional Imaging Needed Mammogram BI-R ADS: 0 Indeterminate Dictated By: MATTHEW URIAS DO 1247 Transcribed By: NATA on 11/21/17 1247 COPY TO: FEDERICO AMIN MD BONE DXA DUAL ENERGY [address] [place] [address] Patient Name: ROSMERY ALSTON MR #: [id number] : 1965 Age/Sex: 52/F Req #: [id number] Adm Physician: Ordered by: FEDERICO AMIN MD Report #: [id number] Location: MAMMO Room/Bed: Procedure: [id number] DX/BONE DXA GLENNA L ENERGY Exam Date: Exam Time: REPORT STATUS : Signed EXAM: DXA BONE DENSITY INDICATIONS: DISORDER OF BONE COMPARISON : 12/08/2015 and 11/11/2013 FINDINGS: Proximal left femur bone mineral de nsity (BMD) (g/cm2): 0.78 Femur T-score (standard deviation relative to dorothy g adult mean BMD): -0.8 Femur Z-score (standard deviation relative to age -matched control group): 0 Lumbar bone mineral density (BMD) (g/cm2): 1 Lumbar T-score (standard deviation relative to young adult mean BMD): -0.4 Lumbar Z-score (standard deviation relative to age-matched control g roup): 0.4 Change since prior exam (%): Femur: -5.6% Spine: - 7.7% Change since oldest prior exam (%): Femur: -5.5% Spine: -3.9% CONCLUSION: Bone mineral density in the left femur is classified as normal. Fracture risk is not increased. Decreased bone mineral density from : -5.6% in the left hip and -7.7% in the lumbar spine. World [employer] Classification: *The Z-score is provided for informationa l purposes. The T-score is preferable for clinical decisions. When comparing exams, a change of >4% is considered statistically significant. SUGGESTED RECOMMENDATIONS: Normal T Osteopenia: Consideration should be given to use of calcium supplementation, daily multiple vitamins and adequate exercise, as preventive measures against osteoporosis, if clinically [...] TO: FEDERICO AMIN MD MAMMOGRAM DIGITAL SCR BI [address] [place] [address] Patient Name: ROSMERY ALSTON MR #: [id number] : 1965 Age/Sex: 52/F Req #: [id number] [facility] Physician: Ordered by: FEDERICO AMIN MD Report #: [id number] Location: MAMMO Room/Bed: Procedure: [id number] MG/MAMMOGRAM DI GITAL SCR BI Exam Date: 10/22/17 Exam Time: 1500 REPORT STATUS: Signed #[id number] - MGSCRNBI #BILATERAL DIGITAL SC REENING MAMMOGRAM WITH CAD: 10/22/2017 CLINICAL: Routine screening. Renetta dougherty is made to exam dated: 12/08/2015 mammogram - [facility]. Current study contains 8 films. The tissue of both breasts is he terogeneously dense. This may lower the sensitivity of mammography. Curre nt study was also evaluated with a Computer Aided Detection (CAD) system. Th ere is a 1 cm oval mass in the right breast at 9 o'clock middle depth that is ne w. Benign calcification in the right breast. There are bilateral implants dae t are intact and stable. No other significant masses, calcifications, or other findings are seen in either breast. IMPRESSION: INCOMPLETE: NEEDS A DDITIONAL IMAGING EVALUATION The 1 cm oval mass in the right breast resembles a cyst but is indeterminate and new. Additional views with possible ultrasou nd are recommended. The patient will be contacted by the Mammography Depa rtment to schedule this appointment. Matthew Urias Jr., D.O. cw/:11/05/2017 08:03:30 Director Of Reimbursement: Yanelis MITTAL(Alycia)(), [facility] letter sent: Additional Imaging Needed M ammogram BI-RADS: 0 Indeterminate Dictated By: MATTHEW URIAS DO Electronica lly Signed By: MATTHEW URIAS DO on 11/05/17802 Transcribed By: NATA on 10/10 COPY TO: FEDERICO AMIN MD MRI SPINE CERVICAL WO [address] [place] [address] Patient Name: ROSMERY ALSTON MR #: [id number] : 1965 Age/Sex: 52/F Req #: [id number] Adm Physician: Ordered by: JUANIS KRUEGER MD Report #: [id number] Location: MRI Room/Bed: Procedure: [id number] MRI/MRI SPINE CERVICA L WO Exam Date: 05/20/17 Exam Time: 1750 REPOR T STATUS: Signed EXAMINATION: MRI of the cervical spine without contrast HISTORY: Neck pain, cervical radiculopathy, right upper extremity numbness for the last 3-4 months COMPARISON: None available TECHNIQUE: Sagittal T1, T2, STIR; axial T2, gradient echo. FINDINGS: Curvature: Normal lordo sis. Vertebrae: No evidence of neoplasm, infection, or fracture. Chronic endpl ate degenerative changes from C5 through C7 Foramen magnum: No mass, Chiari malformation, or basilar invagination. Spinal Cord: Normal size and signal i ntensity. Soft Tissues: Unremarkable. Degenerative changes: C 1-C2: Unremarkable. C2-C3: Unremarkable. C3-C4: Mild disc bu lge and facet arthrosis without canal or foraminal stenoses C4-C5: S mall disc osteophyte, mild uncovertebral and facet arthrosis without significa nt stenoses C5-C6: Slightly asymmetric to the right disc osteophyte co mplex, mild bilateral uncovertebral facet arthrosis. Mild canal and right fora kareen stenosis. Moderate left foraminal stenosis., C6-C7: Disc osteo phyte complex, bilateral uncovertebral and facet arthrosis. Severe spinal lamonte l, moderate right and severe left foraminal stenoses C7-T1: Mild fac et arthrosis without canal or foraminal stenosis IMPRESSION: 1. Sever e degenerative spinal canal stenosis at C6-7 and mild at C5-6. 2. Severe f oraminal stenosis on the left at C6-7 and moderate at C5-6 Signed by: Dr. Armen Joe M.D. on 05/21/2017 7:08 AM Dictated By: DIPESH JOE MD Electr onically Signed By: DIPESH JOE MD on 05/21/17707 Transcribed By: DONTAE on 05/21/17707 COPY TO: JUANIS KRUEGER MD
[2020-05-11 12:09] VITALS: BP 111/63
[2020-05-11 12:15] VITALS: BP 111/63
[2020-05-11 12:17] VITALS: BP 111/63
[2020-05-11] MEDS: FENTANYL CITRATE/PF 100MCG/2 ML INJ ONE ×2 (12:28→16:43)
[2020-05-11] MEDS ORDERED: MIDAZOLAM HCL 2 MG/2 ML VIAL ONE (14:40)
[2020-05-11] MEDS ORDERED: FENTANYL CITRATE/PF 100MCG/2 ML INJ ONE (14:40)
[2020-05-11] MEDS ORDERED: ROCURONIUM BROMIDE 10 MG/ML 5ML VIAL IV ONE (14:49)
[2020-05-11] MEDS ORDERED: PROPOFOL IV EMULSION 10 MG/ML 20 ML VIAL ONE (14:49)
[2020-05-11] MEDS ORDERED: GLYCOPYRROLATE INJ 0.2 MG/ML VIAL ONE (14:49)
[2020-05-11] MEDS ORDERED: DEXAMETHASONE SOD PHOS INJ 4 MG/ML VIAL ONE (14:49)
[2020-05-11] MEDS ORDERED: SEVOFLURANE INHAL SOLN 250 ML PEN BTL ONE (14:49)
[2020-05-11] MEDS ORDERED: NEOSTIGMINE 1 MG/ML 10ML VIAL ONE (14:49)
[2020-05-11] MEDS ORDERED: LIDOCAINE HCL 2% LOCAL INJ 5 ML SDV VIAL INJ ONE (14:49)
[2020-05-11] MEDS ORDERED: ONDANSETRON HCL INJ 2MG/ML 2ML 2 MG/ML VIAL ONE (14:49)
--- NOTE | 2020-05-11 15:29 | Operative Report ---
DATE OF PROCEDURE: 05/11/2020 SURGEON: Marko Colin MD PREOPERATIVE DIAGNOSIS: C5-6 and C6-7 spondylosis and disk herniation with radiculopathy, M50.120. POSTOPERATIVE DIAGNOSIS: C5-6 and C6-7 spondylosis and disk herniation with radiculopathy, M50.120. PROCEDURES: 1. C5-6 anterior cervical diskectomy and microsurgical osteophyte resection and allograft fusion, 86970. 2. C6-C7 anterior cervical diskectomy and microsurgical osteophyte resection and allograft fusion, 66439. 3. Preparation of tricortical iliac crest allograft, 32859. 4. C5-C6-C7 anterior cervical plating with Synthes CSLP plate, 79551. ANESTHESIA: General. INDICATIONS: The patient is a 54-year-old woman, who presents with C5-6 and C6-7 spondylosis and disk herniation symptomatic with an intractable left-sided cervical radiculopathy. She was taken to surgery for two-level ACDF. PROCEDURE IN DETAIL: After induction of anesthesia, the patient was placed on the operating table in supine position. The right side of the neck was prepped and draped in sterile fashion. The fluoroscopic C-arm was positioned in cross-table lateral orientation. A small transverse incision was created on the right side of neck. Superimposed on the C6 vertebral body as determined by fluoroscopy. The platysma was divided in line with the incision. A subplatysmal dissection was carried out and avascular plane of dissection was developed medially. Sternocleidomastoid muscle was followed medial to the carotid sheath to the anterior border of cervical spine. The deep cervical fascia was opened. The esophagus was retracted to the left. The attachments of longus colli muscles to the anterolateral aspects of vertebral bodies of C5, C6, and C7 were divided. The anterior longitudinal ligament was resected. [place] posts were inserted in C5 and C7. The [place] distractor was used to distract both disk spaces simultaneously. The anterior annuli of the disks were incised with a #11 blade. The contents of both disks were thoroughly evacuated with curettes and pituitary instruments. The posterior osteophytes were meticulously drilled with a 2 mm cutting bur on a high-speed drill until they were completely removed. The posterior annulus of the disk, chronically herniated disk material, and the posterior longitudinal ligament were resected [id number] until the dura was fully exposed and decompressed. The medial aspects of the uncinate processes were resected bilaterally with particular attention given to the C6-7 uncinate process on the left side, which was markedly hypertrophic to fully expose and decompress the origins of the corresponding nerve roots. After satisfactory decompression had been achieved, the endplates were prepared for fusion. Two pieces of tricortical iliac crest allograft were cut to the size and shapes of the disk spaces and were inserted into disk spaces under distraction and fluoroscopic guidance. The distraction was released and distraction posts were removed. A Synthes CSLP variable type anterior cervical plate was selected and was affixed to vertebral bodies of C5, C6, and C7 with three pairs of 14 x 4.35 mm screws. All screw holes were drilled and tapped on the lateral fluoroscopic guidance. All screws were locked with the appropriate locking screws. An excellent construct was obtained. The wound was copiously irrigated with bacitracin solution. Meticulous hemostasis was secured. Retraction was removed. The platysma was closed with 3-0 Vicryl sutures. The skin was closed with 4-0 Monocryl sutures in subcuticular fashion. Steri-Strips and dressing were applied. The patient was awakened, extubated, and taken to postanesthesia care unit in stable condition. No intraoperative complications were encountered. Estimated blood loss was 30 mL. Marko Colin MD PP/FLACA /[id number]
[2020-05-11] MEDS ORDERED: SODIUM CHLORIDE 0.9% 250ML 250 ML ONE (16:49)
[2020-05-11] MEDS: CEFAZOLIN SOD 1 GM/NS 50ML 50 ML IV SCH (16:53)
[2020-05-11 17:22] VITALS: BP 127/73
--- NOTE | 2020-05-11 19:00 | NUR ---
Resumed care of patient. Patient awake and resting in bed, dressing to anterior neck CDI, soft collar in place, no s/s of distress at this time. Bed locked and in lowest position, side rails upx3, call light placed within reach. Patient instructed to call for assistance if needed, verbalized understanding. All safety measures in place.
[2020-05-11 20:00] VITALS: BP 122/73
[2020-05-11] MEDS ORDERED: ZOLPIDEM TARTRATE 5 MG TAB PO PRN (21:00)
[2020-05-11 21:04] VITALS: BP 122/73
[2020-05-11] MEDS ORDERED: NORCO 7.5-3251 EACH PO (22:39)
[2020-05-12] VITALS: BP 94/56
[2020-05-12] MEDS: CEFAZOLIN SOD 1 GM/NS 50ML 50 ML IV SCH ×2 (00:05→07:34)
[2020-05-12 04:00] VITALS: BP 113/71
--- NOTE | 2020-05-12 06:51 | NUR ---
Patient leaving unit via wheelchair for x-ray. In stable condition, no s/s of distress at this time.
--- NOTE | 2020-05-12 06:59 | NUR ---
Patient returned to unit from x-ray. In stable condition, no s/s of distress. Handoff report given to oncoming nurse.
[2020-05-12 08:00] VITALS: BP 117/62
[2020-05-12] MEDS ORDERED: PANTOPRAZOLE SOD 40 MG TABEC PO SCH (09:00)
--- NOTE | 2020-05-12 09:16 | NUR ---
Patient received discharge order from Dr. Colin. Patient was given discharge instructions, prescriptions, and education. Patient verbalized understanding. Patient IV removed at 0845 and covered with C/D/I dressing. Patient wheeled to car at 0910 and had no issues or complaints.
--- NOTE | 2020-05-12 10:18 | Diagnostic Imaging Report ---
EXAMINATION: Cervical spine radiographs - 2 views. CLINICAL HISTORY: Status post surgery COMPARISON: Cervical spine MRI 04/12/2020 DISCUSSION: The cervical spine is visualized from the skull base to C7. Status post C5-C7 ACDF with intervertebral disc spaces. No evidence of hardware loosening or failure. No acute osseous abnormalities. Visualized cervical vertebral body heights are unchanged. Trace stepwise anterolisthesis from C2 through C5. Mild degenerative disc changes at C4-C5. Mild facet arthropathy at the inferior cervical spine. Subcutaneous emphysema along the right supraclavicular soft tissues. Subtle fractures, ligamentous or soft tissue injuries cannot be excluded on the basis of this examination. IMPRESSION: 1. Status post C5-C7 ACDF without evidence of acute hardware complication. 2. Subcutaneous emphysema along the right supraclavicular soft tissues, recommend correlation with physical exam and recent surgery. 3. Mild degenerative disc changes at C4-C5 and mild facet arthropathy at the inferior cervical spine. Signed by: Dr. Brant Baeza M.D. on 05/12/2020 10:15 AM
== END 2020-05-12 09:10 | disposition home or self-care (01) ==
LOC: OR 05:20 → PACU V 09:18 → MED/SURG 11:44
PROVIDERS: ADMIT Neurological Surgery; ATTEND Neurological Surgery
DX: M47.22 Other spondylosis with radiculopathy, cervical region (principal); K21.9 Gastro-esophageal reflux disease without esophagitis; E78.5 Hyperlipidemia, unspecified; Z82.49 Family history of ischemic heart disease and other diseases of the circulatory system; F17.210 Nicotine dependence, cigarettes, uncomplicated; Z01.810 Encounter for preprocedural cardiovascular examination; Z01.812 Encounter for preprocedural laboratory examination; Z11.59 Encounter for screening for other viral diseases
CPT/HCPCS: 20931; 22551; 22552; 22845; 36415; 72040; 80048; 85025; 85610; 85730; 86850; 86900; 88304; 88311; 93005; C1713 ×4; C1768; G0378 ×2; J0690 ×2; J1100; J2001; J2250; J2405; J2704; J2710; J3010; J3370; J7050; J7121; S0164; U0002; 76000; J2270

== ENCOUNTER → 2020-06-08 | Outpatient (CLI) | payer BC ==
[~2020-06-08] MED LIST changes: +NORCO 7.5-3251 EACH PO
--- NOTE | 2020-06-08 16:42 | Diagnostic Imaging Report ---
Cervical spine, 4 views including flexion and extension sagittal views INDICATION: ^[id number] ^1530 ^EVALUATE FUSION STATUS Comparison: 05/12/2020. Discussion: Is reinitiation of post surgical changes from anterior fusion from C5 through C7. Negative for abnormal prevertebral soft tissue thickening or evidence of hardware malfunction. There is mild straightening of the normal cervical lordosis on neutral view. On flexion and extension view no significant malalignment or listhesis is noted. No rotational translation is noted. Partially visualized surrounding soft tissues and osseous structures are unremarkable. IMPRESSION: Stable postoperative changes from anterior fusion of C5-C7. No evidence of listhesis or malalignment on flexion and extension views. Signed by: Simba Caballero MD on 06/08/2020 4:39 PM
== END ==
LOC: RAD 15:04
PROVIDERS: ATTEND Neurological Surgery
DX: M50.20 Other cervical disc displacement, unspecified cervical region (principal); M43.22 Fusion of spine, cervical region
CPT/HCPCS: 72050

== ENCOUNTER 2020-07-06 09:00 | Outpatient (RCR) | payer BC | END 2020-07-08 | LOC: PT 09:00 | PROVIDERS: ATTEND Neurological Surgery | DX: M50.120 Mid-cervical disc disorder, unspecified level (principal); M62.81 Muscle weakness (generalized) | CPT/HCPCS: 97139 ==

== ENCOUNTER → 2020-09-05 | Outpatient (CLI) | payer OTHER ==
[~2020-09-05] MED LIST changes: +COVID-19 VACC, MRNA(MODERNA)/PF 100 MCG/0.5 ML VIAL IM ONE
== END ==
LOC: VACCPMC 01:58
DX: Z23 Encounter for immunization (principal); Z20.828 Contact with and (suspected) exposure to other viral communicable diseases

== ENCOUNTER → 2020-10-11 | Outpatient (CLI) | payer OTHER | END | DRG 951 | LOC: VACCPMC 07:36 | DX: Z23 Encounter for immunization (principal); Z20.822 Contact with and (suspected) exposure to COVID-19 | CPT/HCPCS: 0012A; 91301 ==

== ENCOUNTER → 2021-01-08 | Outpatient (CLI) | payer OTHER ==
[~2021-01-08] MED LIST changes: -COVID-19 VACC, MRNA(MODERNA)/PF 100 MCG/0.5 ML VIAL IM ONE
== END ==
LOC: RAD 15:49
PROVIDERS: ATTEND Neurological Surgery
DX: M50.20 Other cervical disc displacement, unspecified cervical region (principal); M43.22 Fusion of spine, cervical region
CPT/HCPCS: 72050

== ENCOUNTER → 2021-02-07 | Outpatient (CLI) | payer OTHER ==
[2021-02-07 07:22] LABS: CHOL/HDL RATIO 5.8 (3.0-3.6)
== END ==
LOC: LAB 06:48
PROVIDERS: ATTEND Internal Medicine
DX: E78.5 Hyperlipidemia, unspecified (principal)
CPT/HCPCS: 36415; 80061

== ENCOUNTER → 2021-05-18 | Outpatient (CLI) | payer OTHER ==
[2021-05-18 06:21] LABS: BASOPHILS % 0.4 % (0.0-1.0); EOSINOPHILS # (AUTO) 0.1 (0.0-0.4); EOSINOPHILS % 1.4 % (0.0-6.0); HEMATOCRIT 40.9 % (34.2-44.1); HEMOGLOBIN 13.1 g/dL (12.0-16.0); LYMPHOCYTES # (AUTO) 4.3 (1.0-3.2); MEAN CORPUSCULAR HEMOGLOBIN 30.1 pg (28-32); MONOCYTES # (AUTO) 0.4 (0.2-0.8); MONOCYTES % 4.1 % (4.4-11.3); NEUTROPHILS # (AUTO) 5.3 (2.1-6.9); NEUTROPHILS % 51.7 % (38.7-80.0); PLATELET COUNT 315 x10e3/uL (140-360); RED BLOOD COUNT 4.35 x10e6/uL (3.6-5.1); RED CELL DISTRIBUTION WIDTH 14.6 % (11.7-14.4)
[2021-05-18 06:56] LABS: ALBUMIN 3.8 g/dL (3.5-5.0); ALBUMIN/GLOBULIN RATIO 1.1 (0.8-2.0); ANION GAP 14.4 mmol/L (8-16); CHOL/HDL RATIO 4.6 (3.0-3.6); CREATININE, SERUM 0.75 mg/dL (0.57-1.11); POTASSIUM 4.4 mmol/L (3.5-5.1)
[2021-05-18 07:09] LABS: CLARITY,URINE CLEAR (CLEAR); COLOR,URINE YELLOW (YELLOW); KETONES,URINE NEGATIVE (NEGATIVE); LEUKOCYTE ESTERASE ,URINE NEGATIVE (NEGATIVE); NITRITE,URINE NEGATIVE (NEGATIVE); PROTEIN,URINE DIPSTICK NEGATIVE (NEGATIVE); URINE UROBILINOGEN 0.2 mg/dL (0.2 - 1)
[2021-05-18 07:12] LABS: BACTERIA,URINE FEW /HPF; EPITHELIAL CELLS,URINE MODERATE /LPF; RBC,URINE 0-5 /HPF (0-5); WBC,URINE (MAN) 0-5 /HPF (0-5)
[2021-05-18 07:15] LABS: THYROID STIMULATING HORMONE 0.999 uIU/mL (0.350-4.940)
== END ==
LOC: LAB 06:00
PROVIDERS: ATTEND Internal Medicine
DX: Z00.00 Encounter for general adult medical examination without abnormal findings (principal); E78.5 Hyperlipidemia, unspecified; M89.9 Disorder of bone, unspecified; R73.01 Impaired fasting glucose
CPT/HCPCS: 36415; 80053; 80061; 81001; 83036; 84443; 85025

== ENCOUNTER → 2021-06-18 | Outpatient (CLI) | payer OTHER | LOC: MAMMO 09:16 | PROVIDERS: ATTEND Internal Medicine | DX: Z12.31 Encounter for screening mammogram for malignant neoplasm of breast (principal) | CPT/HCPCS: 77067 ==

== ENCOUNTER → 2021-07-10 | Outpatient (CLI) | payer OTHER ==
[~2021-07-10] MED LIST changes: +COVID-19 VACC, MRNA(MODERNA)/PF 100 MCG/0.5 ML VIAL IM ONE
== END ==
LOC: VACCPMC 08:32
DX: Z23 Encounter for immunization (principal); Z20.822 Contact with and (suspected) exposure to COVID-19

== ENCOUNTER → 2022-02-15 | Outpatient (CLI) | payer BC ==
[~2022-02-15] MED LIST changes: -COVID-19 VACC, MRNA(MODERNA)/PF 100 MCG/0.5 ML VIAL IM ONE
[2022-02-15 08:02] LABS: CHOL/HDL RATIO 4.6 (3.0-3.6)
== END ==
LOC: LAB 07:16
PROVIDERS: ATTEND Internal Medicine
DX: R73.01 Impaired fasting glucose (principal)
CPT/HCPCS: 36415; 80061; 83036

== ENCOUNTER → 2022-06-26 | Outpatient (CLI) | payer BC | LOC: RAD 07:07 | PROVIDERS: ATTEND Internal Medicine Critical Care Medicine | DX: R05.3 Chronic cough (principal); J20.9 Acute bronchitis, unspecified; J30.9 Allergic rhinitis, unspecified; K21.9 Gastro-esophageal reflux disease without esophagitis; Z87.891 Personal history of nicotine dependence | CPT/HCPCS: 71046 ==

== ENCOUNTER → 2022-06-26 | Outpatient (CLI) | payer BC | LOC: MAMMO 07:02 | PROVIDERS: ATTEND Internal Medicine | DX: Z12.31 Encounter for screening mammogram for malignant neoplasm of breast (principal) | CPT/HCPCS: 77067 ==

== ENCOUNTER 2022-10-11 08:44 | Outpatient (RCR) | payer BC | END 2022-11-05 | LOC: PT 08:44 | PROVIDERS: ATTEND Neurological Surgery | DX: M50.120 Mid-cervical disc disorder, unspecified level (principal) ==

== ENCOUNTER → 2022-10-11 | Outpatient (CLI) | payer BC ==
[2022-10-11 06:53] LABS: BASOPHILS # (AUTO) 0.1 (0.0-0.1); BASOPHILS % 0.4 % (0.0-1.0); EOSINOPHILS # (AUTO) 0.1 (0.0-0.4); EOSINOPHILS % 1.1 % (0.0-6.0); HEMOGLOBIN 13.6 g/dL (12.0-16.0); LYMPHOCYTES # (AUTO) 3.3 (1.0-3.2); LYMPHOCYTES % 27.6 % (18.0-39.1); MEAN CORPUSCULAR HEMOGLOBIN 30.6 pg (28-32); MEAN CORPUSCULAR HGB CONC 33.2 g/dL (31-35); MEAN CORPUSCULAR VOLUME 92.1 fL (81-99); MONOCYTES # (AUTO) 0.5 (0.2-0.8); MONOCYTES % 4.6 % (4.4-11.3); NEUTROPHILS # (AUTO) 7.8 (2.1-6.9); NEUTROPHILS % 65.9 % (38.7-80.0); PLATELET COUNT 358 x10e3/uL (140-360); RED BLOOD COUNT 4.45 x10e6/uL (3.6-5.1)
[2022-10-11 07:12] LABS: ALBUMIN 3.9 g/dL (3.5-5.0); ANION GAP 12.2 mmol/L (8-16); CALCIUM 9.5 mg/dL (8.4-10.2); CHOL/HDL RATIO 5.5 (3.0-3.6); CREATININE, SERUM 0.78 mg/dL (0.57-1.11); POTASSIUM 4.2 mmol/L (3.5-5.1)
[2022-10-11 12:34] LABS: THYROID STIMULATING HORMONE 0.899 uIU/mL (0.350-4.940)
== END ==
LOC: LAB 06:37
PROVIDERS: ATTEND Internal Medicine
DX: Z00.00 Encounter for general adult medical examination without abnormal findings (principal); E55.9 Vitamin D deficiency, unspecified; R53.83 Other fatigue; R73.01 Impaired fasting glucose
CPT/HCPCS: 36415; 80053; 80061; 83036; 84443; 85025

== ENCOUNTER → 2024-07-21 | Outpatient (REF) | payer BC | LOC: MAMMO 11:21 | PROVIDERS: ATTEND Internal Medicine | DX: Z12.31 Encounter for screening mammogram for malignant neoplasm of breast (principal) | CPT/HCPCS: 77067 ==

== ENCOUNTER → 2024-08-30 | Day surgery (SDC) | payer BC ==
[~2024-08-30] MED LIST changes: +ACETAMINOPHEN 1000 MG/100 ML 100 ML IV ONE; +EYE LUBRICANT OPTH OINT 3.5GM TUBE OP ONE; +FENTANYL CITRATE/PF 100MCG/2 ML INJ ONE; +GLYCOPYRROLATE INJ 0.2 MG/ML VIAL ONE; +KETOROLAC TROMETHAMINE 30 MG/ML VIAL ONE; +LIDOCAINE HCL 2% LOCAL INJ 5 ML SDV VIAL INJ ONE; +MELOXICAM7.5 MG PO; +NAPROXEN250 MG PO; +PROPOFOL IV EMULSION 10 MG/ML 20 ML VIAL ONE
[2024-08-30] MEDS: LACTATED RINGER'S 1,000 ML ONE (10:08)
[2024-08-30] MEDS: FENTANYL CITRATE/PF 100MCG/2 ML INJ ONE (10:53)
[2024-08-30 11:39] VITALS: TEMP 98
[2024-08-30] MEDS: ACETAMINOPHEN 1000 MG/100 ML IV ONE (12:00)
[2024-08-30 12:05] VITALS: BP 124/76; PULSE 80; RESP 18; O2SAT 99
[2024-09-03 09:09] LABS: ENDOMYSIAL ANTIBODIES, IGA Negative (Negative)
[2024-09-03 10:17] LABS: IMMUNOGLOBULIN A 253 mg/dL (87-352); TISSUE TRANSGLUTAMINASE IGA AB <2 U/mL (0-3)
== END | disposition home or self-care (01) ==
LOC: OR 09:41
PROVIDERS: ATTEND Internal Medicine Gastroenterology
DX: K29.70 Gastritis, unspecified, without bleeding (principal); K31.89 Other diseases of stomach and duodenum; K21.9 Gastro-esophageal reflux disease without esophagitis; Z86.0100 Personal history of colon polyps, unspecified; Z71.3 Dietary counseling and surveillance; G89.29 Other chronic pain; F17.200 Nicotine dependence, unspecified, uncomplicated; Z01.810 Encounter for preprocedural cardiovascular examination; Z79.1 Long term (current) use of non-steroidal anti-inflammatories (NSAID); Z79.899 Other long term (current) drug therapy; Z68.26 Body mass index [BMI] 26.0-26.9, adult; Z53.20 Procedure and treatment not carried out because of patient's decision for unspecified reasons
CPT/HCPCS: 43239; 82784; 83516; 86256; 93005; J0131; J1885; J2003; J2470; J2704; J3010; J7121